=== PATIENT | female | born 1980 | race Caucasian/White ===

== ENCOUNTER → 2017-11-03 | Day surgery (SDC) | payer BC ==
[~2017-11-03] MED LIST: LIDOCAINE 1% PF 2 ML VIAL. ID; MIDAZOLAM HCL/PF 2 MG/2 ML VIAL. IV; PROPOFOL 60 ML IV; fentaNYL PF VIAL 100 MCG/2 ML VIAL IV
[2017-11-03] MEDS: IV RINGERS,LACTATED 1000ML 1,000 ML IV (08:59)
[2017-11-03 11:02] LABS: NEG OBC UR NEG; POS OBC UR POS
== END | disposition home or self-care (01) ==
LOC: ENDOS 08:27
DX: K64.0 First degree hemorrhoids (principal); K21.9 Gastro-esophageal reflux disease without esophagitis; K62.1 Rectal polyp; K31.89 Other diseases of stomach and duodenum
CPT/HCPCS: 45380; 81025; 88305; 88342; J2704